=== PATIENT | female | born 1995 | race African-American/Black ===

== ENCOUNTER 2017-06-19 14:35 | Emergency (ER) | payer MEDICAID ==
[~2017-06-19] VITALS: Ht 162.6 cm; Wt 64.9 kg
[2017-06-19 14:35] VITALS: BP_SYST 120
--- NOTE | 2017-06-19 14:35 | NUR ---
Patient triaged and placed in waiting room. VSS and patient appears in no acute distress at this time. Accompanied by SELF, awaiting available bed, and MD notified of need for MSE.
--- NOTE | 2017-06-19 17:21 | NUR ---
Patient to ER bed 3 to gown for evaluation. Side rails up. Report given to Jam GREEN.
[2017-06-19 17:25] LABS: BASOPHILS # (AUTO) 0.1 K/uL (0.0-0.2); BASOPHILS % (AUTO) 1.2 % (0.0-2.0); EOSINOPHILS # (AUTO) 0.1 K/uL (0.0-0.4); EOSINOPHILS % (AUTO) 0.8 % (0.0-4.0); HEMATOCRIT 38.5 % (36-48); HEMOGLOBIN 12.5 g/dL (12.0-16.0); LYMPHOCYTES # (AUTO) 3.5 K/uL (1.0-5.5); LYMPHOCYTES % (AUTO) 37.6 % (20.5-51.5); MEAN CORPUSCULAR HEMOGLOBIN 30 pg (27-31); MEAN CORPUSCULAR HGB CONC 33 % (32-36); MEAN CORPUSCULAR VOLUME 93 fL (79.0-98.0); MONOCYTES # (AUTO) 0.4 K/uL (0.0-1.0); MONOCYTES % (AUTO) 4.3 % (1.7-9.3); NEUTROPHILS # (AUTO) 5.2 K/uL (1.8-7.7); NEUTROPHILS % (AUTO) 56.1 % (40.0-70.0); PLATELET COUNT (AUTO) 431 K/uL (130-430); RED BLOOD CELL COUNT(AUTO) 4.13 MIL/uL (4.2-6.2); RED CELL DISTRIBUTION WIDTH 13.6 % (9.0-15.0); WHITE BLOOD COUNT (AUTO) 9.3 K/uL (4.8-10.8)
--- NOTE | 2017-06-19 17:30 | NUR ---
Dr Davidson at bedside to evaluate patient.
[2017-06-19 17:38] LABS: CALCIUM 9.7 mg/dL (8.4-11.0); CREATININE 0.67 mg/dL (0.55-1.30); POTASSIUM 3.5 mmol/L (3.5-5.1)
[2017-06-19 17:59] LABS: ALBUMIN 4.2 g/dL (3.4-4.8); TOTAL BILIRUBIN 0.3 mg/dL (0.0-1.0)
--- NOTE | 2017-06-19 18:15 | NUR ---
Patient moved to bed 7 to facilitate pelvic exam.
--- NOTE | 2017-06-19 18:20 | NUR ---
Patient to ER via triage with c/o cramping and viaginal bleeding. Patient reports that she took Plan B 4 days ago, and that patient has been having vaginal bleeding and cramping x 2 days. Patient also reports that today she passed a clot with white tissue. Patient reports that she is approximately 7-8 weeks . Awaiting pelvic exam by Temitope Huynh RN to assist.
--- NOTE | 2017-06-19 18:40 | NUR ---
Pelvic exam performed by Dr Davidson with this nurse at bedside for entire examination. Patient tolerated procedure . Patient assisted to position of comfort after examination.
[2017-06-19] MEDS ORDERED: traMADol HCL HCL 50 MG TABLET (ULTRAM) PO ONE (18:45)
--- NOTE | 2017-06-19 19:03 | NUR ---
Patient resting quietly in nad, sitting on chair in position of comfort. Patient medicated as ordered. Awaiting dispo.
--- NOTE | 2017-06-19 19:27 | NUR ---
Dr Davidson at bedside, speaking with patient regarding results and plan of care. Questions answered by Dr Davidson.
--- NOTE | 2017-06-19 19:45 | NUR ---
Dr Pierre at bedside speaking with patient regarding results and plan of care. Questions answered by Dr Pierre.
[2017-06-19 19:54] VITALS: BP_SYST 120
--- NOTE | 2017-06-19 19:56 | NUR ---
Patient given written and verbal discharge instructions and verbalizes understanding. ER MD discussed with patient the results and treatment provided. Patient in stable condition. ID arm band removed. Rx of Tramadol given. Patient educated on pain management and to follow up with PMD. Pain Scale 2/10 tolerable for pt . Opportunity for questions provided and answered.
== END 2017-06-19 19:54 | disposition home or self-care (01) ==
LOC: SED 14:35
DX: O03.9 Complete or unspecified spontaneous abortion without complication (principal); Z3A.01 Less than 8 weeks gestation of pregnancy; Z88.0 Allergy status to penicillin
CPT/HCPCS: 36415; 76801; 76817; 80053; 84702-TC; 85025; 99285

== ENCOUNTER 2018-03-25 09:16 | Observation (INO) | payer MEDICAID ==
[~2018-03-25] VITALS: Ht 162.6 cm; Wt 66.2 kg
[2018-03-25 09:51] VITALS: BP_SYST 115
--- NOTE | 2018-03-25 10:10 | NUR ---
Patient to ER bed 5 to gown for evaluation. Side rails up. Report received from Adonay GREEN.
--- NOTE | 2018-03-25 10:50 | NUR ---
Patient has been medically cleared by Dr. Ontiveros from an ER perspective. Patient will be transfered to OB for monitoring. Report called to Toyin GREEN in OB.
== END 2018-03-25 12:30 | disposition home or self-care (01) ==
LOC: SED 09:16 → SPU 11:11
PROVIDERS: ADMIT Specialist; ATTEND Specialist
DX: O26.892 Other specified pregnancy related conditions, second trimester (principal); T59.91XA Toxic effect of unspecified gases, fumes and vapors, accidental (unintentional), initial encounter; Z3A.25 25 weeks gestation of pregnancy
CPT/HCPCS: 99283; G0378

== ENCOUNTER 2018-06-30 12:10 | Inpatient (IN) | payer MEDICAID ==
[~2018-06-30] VITALS: Ht 162.6 cm; Wt 89.8 kg
[2018-06-30] MEDS ORDERED: MORPHINE SULFATE 10MG/10ML PF AMP ONE (14:46)
[2018-06-30] MEDS ORDERED: EPINEPHrine 1 MG/ML AMP ONE (14:46)
[2018-06-30] MEDS ORDERED: LR 1,000 ML IV.SOLN IV ONE (14:46)
[2018-06-30] MEDS ORDERED: NS IRRIG SOLN 1000 ML IR ONE (14:46)
[2018-06-30] MEDS ORDERED: LR 500 ML IV ONE (15:20)
[2018-06-30] MEDS ORDERED: TERBUTALINE SULFATE 1 MG/ML VIAL SUBCUT ONE (15:30)
[2018-06-30] MEDS ORDERED: NALBUPHINE HCL 10 MG/ML AMP IVP PRN (15:30)
[2018-06-30 15:59] LABS: BASOPHILS % (AUTO) 0.4 % (0.0-2.0); EOSINOPHILS # (AUTO) 0.1 K/uL (0.0-0.4); EOSINOPHILS % (AUTO) 1.3 % (0.0-4.0); HEMATOCRIT 36.2 % (36-48); HEMOGLOBIN 11.9 g/dL (12.0-16.0); LYMPHOCYTES # (AUTO) 1.6 K/uL (1.0-5.5); MEAN CORPUSCULAR HEMOGLOBIN 31 pg (27-31); MEAN CORPUSCULAR HGB CONC 33 % (32-36); MEAN CORPUSCULAR VOLUME 96 fL (79.0-98.0); MONOCYTES # (AUTO) 0.4 K/uL (0.0-1.0); MONOCYTES % (AUTO) 5.7 % (1.7-9.3); NEUTROPHILS % (AUTO) 69.6 % (40.0-70.0); PLATELET COUNT (AUTO) 391 K/uL (130-430); RED BLOOD CELL COUNT(AUTO) 3.79 MIL/uL (4.2-6.2); RED CELL DISTRIBUTION WIDTH 12.9 % (9.0-15.0); WHITE BLOOD COUNT (AUTO) 7.1 K/uL (4.8-10.8)
[2018-06-30 18:20] VITALS: BP_SYST 123
[2018-07-01] MEDS ORDERED: CLINDAMYCIN 900 mg/50mL D5W 50 ML IV SCH (03:00)
[2018-07-01] MEDS: LR 1,000 ML IV SCH ×2 (03:00→07:00)
[2018-07-01] MEDS ORDERED: OXYTOCIN/0.9 % SODIUM CHLORIDE 1,000 ML IV SCH (03:00)
[2018-07-01] MEDS ORDERED: ROPIVACAINE 0.2% 100 ML ONE ×2 (06:36→13:36)
[2018-07-01] MEDS ORDERED: fentaNYL CITRATE/PF 100 MCG/2 ML AMP ONE (06:36)
[2018-07-01] MEDS ORDERED: LR 500 ML IV ONE (08:13)
[2018-07-01] MEDS ORDERED: FENT2mCg/mL-ROPIVA0.2%/NS EPID 150 ML EP SCH (08:15)
[2018-07-01] MEDS ORDERED: TERBUTALINE SULFATE 1 MG/ML VIAL ONE (14:03)
[2018-07-01] MEDS ORDERED: CLINDAMYCIN 900 mg/50mL D5W 50 ML IV ONE (14:45)
[2018-07-01] MEDS ORDERED: NALOXONE HCL 0.4 MG/ML AMP (NARCAN) IVP PRN ×2 (15:15)
[2018-07-01] MEDS ORDERED: fentaNYL CITRATE/PF 100 MCG/2 ML AMP IVP PRN ×2 (15:15)
[2018-07-01] MEDS ORDERED: ONDANSETRON HCL 4 MG/2 ML VIAL IVP PRN (15:15)
[2018-07-01] MEDS ORDERED: DIPHENHYDRAMINE INJ 50 MG/ML VIAL IVP PRN (15:15)
[2018-07-01] MEDS ORDERED: MORPHINE SULFATE 10MG/10ML PF AMP EP SCH (15:15)
[2018-07-01] MEDS ORDERED: KETOROLAC TROMETHAMINE 60 MG/2 ML VIAL IM PRN (15:15)
[2018-07-01] MEDS ORDERED: NALBUPHINE HCL 10 MG/ML AMP IVP PRN (15:15)
[2018-07-01] MEDS ORDERED: LR 1,000 ML IV SCH (15:34)
[2018-07-01] MEDS ORDERED: BISACODYL 10 MG/SUPPOSITORY RC PRN (15:45)
[2018-07-01] MEDS ORDERED: SIMETHICONE 80 MG TAB.CHEW PO PRN (15:45)
[2018-07-01] MEDS ORDERED: LANOLIN 7 GM OINT. TP PRN (15:45)
[2018-07-01 15:46] VITALS: BP_SYST 122
[2018-07-01] MEDS ORDERED: TEMAZEPAM 15 MG CAPSULE PO PRN (21:00)
[2018-07-02] MEDS: IBUPROFEN 600 MG TABLET PO SCH ×4 (05:54→23:57)
[2018-07-02 08:15] LABS: BASOPHILS % (AUTO) 0.2 % (0.0-2.0); EOSINOPHILS # (AUTO) 0.1 K/uL (0.0-0.4); EOSINOPHILS % (AUTO) 0.5 % (0.0-4.0); HEMATOCRIT 32.6 % (36-48); HEMOGLOBIN 10.5 g/dL (12.0-16.0); LYMPHOCYTES # (AUTO) 1.2 K/uL (1.0-5.5); LYMPHOCYTES % (AUTO) 11.6 % (20.5-51.5); MEAN CORPUSCULAR HEMOGLOBIN 32 pg (27-31); MEAN CORPUSCULAR HGB CONC 32 % (32-36); MEAN CORPUSCULAR VOLUME 98 fL (79.0-98.0); MONOCYTES # (AUTO) 0.7 K/uL (0.0-1.0); MONOCYTES % (AUTO) 7.2 % (1.7-9.3); NEUTROPHILS # (AUTO) 8.1 K/uL (1.8-7.7); NEUTROPHILS % (AUTO) 80.5 % (40.0-70.0); PLATELET COUNT (AUTO) 286 K/uL (130-430); RED BLOOD CELL COUNT(AUTO) 3.33 MIL/uL (4.2-6.2); RED CELL DISTRIBUTION WIDTH 12.7 % (9.0-15.0); WHITE BLOOD COUNT (AUTO) 10.1 K/uL (4.8-10.8)
[2018-07-02] MEDS: OXYCODONE/ACETAMINOPHEN 5-325 TABLET PO PRN (16:30)
[2018-07-02] MEDS ORDERED: OXYCODONE/ACETAMINOPHEN 5-325 TABLET PO PRN (16:30)
[2018-07-03] MEDS: IBUPROFEN 600 MG TABLET PO SCH ×2 (06:15→12:08)
[2018-07-03] MEDS ORDERED: DOCUSATE SODIUM 100 MG CAPSULE PO PRN (09:45)
[2018-07-03] MEDS: OXYCODONE/ACETAMINOPHEN 5-325 TABLET PO PRN (09:56)
[2018-07-03] MEDS ORDERED: DOCUSATE SODIUM 100 MG CAPSULE PO ONE (10:01)
[2018-07-03] MEDS ORDERED: BUPIVACAINE /PF 0.25% 30 ML VIAL INJ ONE (13:14)
== END 2018-07-03 13:15 | disposition home or self-care (01) | DRG 540 ==
LOC: SPU 12:10 → OBSVTOIN 15:15 → SPU 07-01 16:55
PROVIDERS: ADMIT Obstetrics & Gynecology; ATTEND Obstetrics & Gynecology
PROC: 10D00Z1 Extraction of Products of Conception, Low, Open Approach (ICD-10-PCS; principal; 2018-07-01 15:00)
DX: O99.824 Streptococcus B carrier state complicating childbirth (principal); O76 Abnormality in fetal heart rate and rhythm complicating labor and delivery; O77.0 Labor and delivery complicated by meconium in amniotic fluid; Z3A.39 39 weeks gestation of pregnancy; Z37.0 Single live birth; Z88.0 Allergy status to penicillin
CPT/HCPCS: 36415; 81002-TC; 85025; 86592; 86886; 86900; 86901; 94760; G0378; J0171; J2274; J2300; J2590; J2795; J3010; J3105; J3490; J7120